=== PATIENT | female | born 1975 | race Caucasian/White ===

== ENCOUNTER 2022-08-26 06:13 | Outpatient (REF) | payer BC, SELFPAY ==
[2022-08-26 11:45] LABS: MANUAL DIFF FLAG NO
[2022-08-26 11:55] LABS: Basophils Absolute Auto 0.1 X10*3/uL (0.0-0.2); Eosinophils Absolute Auto 0.3 X10*3/uL (0.0-0.4); Eosinophils Percent Auto 3.9 % (0-4); Hematocrit 38.2 % (37.0-47.0); Hemoglobin 12.3 g/dl (12.0-16.0); Imm Gran Abs Auto 0.01 X10*3/uL (0.00-0.03); Imm Gran Pct Auto 0.1 % (0.0-0.4); Lymphocytes Absolute Auto 1.8 X10*3/uL (1.2-4.9); Lymphocytes Percent Auto 24.7 % (20-40); Mean Corpuscular HGB Conc 32.2 g/dl (31.0-35.0); Mean Corpuscular Hemoglobin 27.5 pg (27.0-33.0); Mean Corpuscular Volume 85.3 fL (80.0-98.0); Mean Platelet Volume 12.2 fL (9.4-12.3); Monocytes Absolute Auto 0.6 X10*3/uL (0.1-1.2); Monocytes Percent Auto 8.5 % (2-11); Neutrophils Absolute Auto 4.5 x10*3/uL (2.0-8.3); Neutrophils Percent Auto 61.8 % (45-73); Platelet Count 308 X10*3/uL (160-400); Red Blood Count 4.48 X10*6/uL (4.20-5.50); Red Cell Distribution Width 14.4 % (11.0-16.0); White Blood Count 7.3 X10*3/uL (4.8-10.8)
[2022-08-26 12:18] LABS: Alanine Aminotransferase 14 U/L (0-31); Albumin Level 4.2 g/dL (3.5-5.0); Alkaline Phosphatase 54 U/L (39-117); Anion Gap 12 (12-20); Aspartate Amino Transferase 17 U/L (5-31); Bilirubin Total 0.2 mg/dL (0.0-1.0); Blood Urea Nitrogen 11 mg/dL (9-16); Calcium 9.1 mg/dL (8.4-10.2); Carbon Dioxide 27 mmol/L (22-29); Chloride 106 mmol/L (96-108); Estimated Glomerular Filt Rate > 60; Glucose Fasting 93 mg/dL (60-99); Sodium 141 mmol/L (135-145); Total Protein 6.3 g/dL (6.5-8.0)
[2022-08-26 13:01] LABS: HIV AB/AG Nonreactive (Nonreactive); HIV Num 1 0.06 S/CO (0.00-0.99)
[2022-08-27 04:23] LABS: Syphilis Screen Nonreactive (Nonreactive)
== END 2022-08-26 06:14 | disposition home or self-care (01) ==
LOC: HO.HMGCLDS 06:13
PROVIDERS: PCP Family Medicine; Visit Provider Family Medicine
DX: Z11.4 Encounter for screening for human immunodeficiency virus [HIV] (principal); R53.83 Other fatigue; R53.81 Other malaise
CPT/HCPCS: 36415; 80053; 85025; 86780; 87389

== ENCOUNTER 2022-09-13 13:01 | Outpatient (REF) | payer BC, SELFPAY ==
--- NOTE | ~2022-09-13 | XR_ITS ---
EXAMINATION: XR LUMBOSACRAL SPINE CLINICAL INFORMATION: Right-sided sciatica. COMPARISON: 06/19/2016 lumbar spine radiographs. TECHNIQUE: Three views of the lumbosacral spine. FINDINGS: Mild thoracolumbar dextroscoliosis with apex at L1-L2. There is normal lumbar lordosis and spinal alignment. Limbus vertebra at L3 and L4. Mild sclerotic changes in the anterior aspect of the superior endplates at L2 and L3. The vertebral bodies are otherwise intact. The soft tissues are unremarkable. XR/XR lumbar spine 2-3V IMPRESSION: 1. Mild thoracolumbar dextroscoliosis. 2. Mild sclerotic changes in the anterior aspect of the superior endplates at L2 and L3 may be degenerative in nature. No significant change.
[2022-09-14 01:46] LABS: CT PCR NOT DETECTED (Not Detect.); NG PCR NOT DETECTED (Not Detect.)
== END 2022-09-13 13:02 | disposition home or self-care (01) ==
LOC: HO.HMGCX 13:01
PROVIDERS: Nurse Practitioner Family; PCP Family Medicine; Visit Provider Family Medicine
DX: M54.31 Sciatica, right side (principal)
CPT/HCPCS: 72100; 87491; 87591

== ENCOUNTER 2022-09-13 14:50 | Outpatient (REF) | payer BC, SELFPAY | END 2022-09-13 14:51 | disposition home or self-care (01) | LOC: HO.LAB 14:50 | PROVIDERS: Visit Provider Nurse Practitioner Family | DX: R30.0 Dysuria (principal) | CPT/HCPCS: 87086; 87147 ==

== ENCOUNTER 2023-10-16 09:52 | Day surgery (SDC) | payer OTHER, SELFPAY ==
--- NOTE | 2023-10-14 12:01 | HO.ANESPROP2 ---
Documented by User: Heather Dickey NP 10/14/23 12:02 HPI - Anesthesia Eval Consult details Narrative: 48yo F for Colonoscopy PMF Active Problems Active Problems: All Active Problems (Updated 09/13/22 @ 14:49 by Cailin Justin, [facility]) Dysuria (Acute) Past Medical History Medical History Dysuria Surgical History Surgical History Hx of tonsillectomy Hx of section Social History Social History Patient Tobacco Use Status: Never used Tobacco Are you DNR?: No Advance Directives: No Advance Directives Information Provided: Yes Nutrition Risks: No Nutritional Risk Meds Allergies Allergy/AdvReac Type Severity Reaction Status Date / Time No Known Allergies Allergy Unverified 09/13/22 13:57 Home Medications Medication Instructions Recorded Confirmed Last Taken Type No Known Home Meds 09/13/22 09/13/22 Unknown History Assessment and Plan Assessment Anesthesia Assessment: Chart Reviewed Documented by User: Kenia Soler MD 10/16/23 10:24 PMFSH Past Medical History Medical History Dysuria Family History Family history of problems with anesthesia: No Surgical History Surgical History Hx of tonsillectomy Hx of section History of Problems with Anesthesia: No Social History Social History Patient Tobacco Use Status: Never used Tobacco Are you DNR?: No Advance Directives: No Advance Directives Information Provided: Yes Nutrition Risks: No Nutritional Risk Meds Allergies Allergy/AdvReac Type Severity Reaction Status Date / Time No Known Allergies Allergy Unverified 09/13/22 13:57 Home Medications Medication Instructions Recorded Confirmed Last Taken Type No Known Home Meds 09/13/22 09/13/22 Unknown History Exam Airway Mallampati Class: II TM Dist: >3cm Neck ROM: Full Heart: rrr Lungs: cta Assessment and Plan Assessment Anesthesia Assessment: Anesthesia Plan Discussed Final Anesthetic Review Family History of Problems with Anesthesia: No History of Problems with Anesthesia: No NPO: Yes ASA Class: I Final Preanesthetic Review: No Changes in Pt Med Stat, Meds/Allgs Chart Reviewed, Consent Obtained/Reviewed and Anes Risks/Benef Reviewed Patient Risk: Low Procedure Risk: Low Anesthetic Plan Anesthetic Plan: MAC: Disposition: Standard PACU
[2023-10-16 10:02] VITALS: BMI 27.3
[2023-10-16 10:10] VITALS: BP 125/74; PULSE 72; RESP 20; TEMP 36.1; O2SAT 98
[2023-10-16] MEDS: Lactated Ringers 1,000 ML 100 ML IVCONT (10:19)
--- NOTE | 2023-10-16 10:19 | MHC.SHP ---
Pre-Procedural Eval Section A Date of Service: 10/16/23 The patient is an INPATIENT: No Changes since office visit: No Cold of Flu in the past 2 weeks, No New Medical Problems, No Changes in Medication and No Patient answered all questions The History & Physical has been completed within 30 days and I have reviewed it.: Yes Section B Chief Complaint: Encounter for screening for malignant neoplasm of Allergies: Allergies Allergy/AdvReac Type Severity Reaction Status Date / Time No Known Allergies Allergy Unverified 09/13/22 13:57 Plan I have reviewed the history and physical and performed a pertinent physical examination on my patient. No changes have occurred unless specified. Time Spent With Patient Time: Total time managing care of this patient today ____ minutes.
[2023-10-16 10:27] LABS: UPreg QC Valid YES; Urine Pregnancy NEGATIVE (NEGATIVE)
[2023-10-16 11:05] VITALS: BP 94/45; PULSE 61; RESP 16; TEMP 36.1; O2SAT 97
--- NOTE | 2023-10-16 11:19 | OP_ITS ---
DATE OF SERVICE: 10/16/2023 SURGEON: Jason Yates MD INDICATIONS: Colon cancer screening. PREOPERATIVE DIAGNOSIS: POSTOPERATIVE DIAGNOSIS: PROCEDURE PERFORMED: Colonoscopy to the terminal ileum. ESTIMATED BLOOD LOSS: COMPLICATIONS: ANESTHESIA: Monitored anesthesia care. ASSISTANTS: SPECIMENS: DESCRIPTION OF PROCEDURE: A history and physical performed, the risks and benefits of the procedure explained to the patient and informed consent was obtained. The patient was placed in the left lateral decubitus position. A digital rectal exam was performed and was found to be normal. The Olympus pediatric video colonoscope was introduced into the rectum and advanced to the cecum. The cecum was identified by transillumination, palpation, and identification of ileocecal valve. Examination was performed. The scope was removed. She tolerated the procedure well and was taken to recovery in stable condition. FINDINGS: The terminal ileum was examined and appeared normal. The visualized colonic mucosa was within normal limits without evidence of masses, ulcers, or polyps. The quality of the prep was good. Retroflexed examination showed some small internal hemorrhoids. IMPRESSION: Normal colonoscopy. RECOMMENDATIONS: 1. Follow up as needed. 2. Repeat colonoscopy is recommended in 10 years for average risk individuals. MD PAULINO العلي/TAMMIE / [id number]
[2023-10-16 11:20] VITALS: BP 99/53; PULSE 62; RESP 16; O2SAT 97
[2023-10-16 11:35] VITALS: BP 112/63; PULSE 60; RESP 16; TEMP 36.4; O2SAT 97
== END 2023-10-16 12:06 | disposition home or self-care (01) ==
PROVIDERS: Nurse Practitioner; PCP Family Medicine; Visit Provider Internal Medicine Gastroenterology
PROC: 0DJD8ZZ Inspection of Lower Intestinal Tract, Via Natural or Artificial Opening Endoscopic (ICD-10-PCS; CPT 45378; principal; 2023-10-16 12:00)
DX: Z12.11 Encounter for screening for malignant neoplasm of colon (principal); K64.8 Other hemorrhoids; L29.0 Pruritus ani; R30.0 Dysuria
CPT/HCPCS: 45378; 81025; J2250; J2704

== ENCOUNTER 2025-06-20 14:46 | Outpatient (REF) | payer OTHER, SELFPAY ==
--- NOTE | ~2025-06-20 | XR_ITS ---
Exam: X-ray, bilateral knees.XR KNEE 3 VIEWS BILATERAL TECHNIQUE: Three views lower extremity joint, bilateral knees INDICATION: bilateral knee pain COMPARISON: None available. FINDINGS: RIGHT KNEE: Joint spaces are preserved. Intercondylar tubercles are peaked and there is a small marginal osteophyte on the lateral femoral condyle. There is small joint effusion. Minute osteophyte is present along the lateral margin of patella. Patellofemoral joint is aligned. LEFT KNEE: Joint spaces are preserved. Intercondylar tubercles are peaked. There is a minute marginal osteophyte involving lateral femoral condyle. Patellofemoral joint is aligned. There are minute marginal sites along the lateral patellofemoral joint. There is no joint effusion. XR/XR Knee Doug 3V IMPRESSION: Right knee: Subtle changes of osteoarthritis and joint effusion Left knee: Subtle changes of osteoarthritis of questionable significance Electronically signed by: José Miguel Garcia MD 06/20/2025 04:26 PM EDT
[2025-06-20 16:18] LABS: MANUAL DIFF FLAG NO
[2025-06-20 17:10] LABS: Hematocrit 41.3 % (37.0-47.0); Hemoglobin 14.4 g/dl (12.0-16.0); Imm Gran Abs Auto 0.03 X10*3/uL (0.00-0.03); Imm Gran Pct Auto 0.4 % (0.0-0.4); Lymphocytes Absolute Auto 2.0 X10*3/uL (1.2-4.9); Mean Corpuscular HGB Conc 34.9 g/dl (31.0-35.0); Mean Corpuscular Hemoglobin 30.2 pg (27.0-33.0); Mean Corpuscular Volume 86.6 fL (80.0-98.0); NRBC Abs Auto 0.000 X10*3/uL (0.0-0.012); NRBC Pct Auto 0.0 /100WBC (0.0-0.2); Platelet Count 289 X10*3/uL (160-400); Red Blood Count 4.77 X10*6/uL (4.20-5.50); White Blood Count 8.2 X10*3/uL (4.8-10.8)
[2025-06-20 18:03] LABS: Alanine Aminotransferase 15 U/L (0-31); Albumin Level 4.7 g/dL (3.5-5.0); Alkaline Phosphatase 76 U/L (39-117); Anion Gap 13 (12-20); Aspartate Amino Transferase 25 U/L (5-31); Blood Urea Nitrogen 11 mg/dL (9-16); Calcium 9.5 mg/dL (8.4-10.2); Carbon Dioxide 27 mmol/L (22-29); Chloride 106 mmol/L (96-108); Cholesterol 177 mg/dL (<200); Estimated Glomerular Filt Rate > 60; HDL Cholesterol 70 mg/dL (>40); Iron 83 mcg/dL (30-160); Percent Iron Saturation 30 % (15-50); Potassium 4.0 mmol/L (3.3-5.1); Sodium 142 mmol/L (135-145); Total Iron Binding Capacity 281 mcg/dL (228-428); Total Protein 6.9 g/dL (6.5-8.0); Triglycerides 54 mg/dL (<150); Unsaturated Iron Binding 198 ug/dL
[2025-06-20 18:30] LABS: Vitamin B12 784 pg/mL (200-900)
== END 2025-06-20 14:47 | disposition home or self-care (01) ==
LOC: HO.XRAY 14:46
PROVIDERS: PCP Physician Assistant; Visit Provider Physician Assistant
DX: Z00.00 Encounter for general adult medical examination without abnormal findings (principal); M25.561 Pain in right knee; M25.562 Pain in left knee; Z78.9 Other specified health status; Z80.0 Family history of malignant neoplasm of digestive organs
CPT/HCPCS: 36415; 73562; 80048; 80061; 80076; 82306; 82607; 83540; 85025; 96127

== ENCOUNTER 2025-06-20 14:46 | Outpatient (AMB) | payer OTHER, SELFPAY ==
--- NOTE | 2025-06-20 14:53 | MHC.PC.OV ---
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 Required: No Accompanied by: Self / Same As Patient Allergies No Known Allergies Allergy (Unverified 06/20/25 14:56) Medication List - Last Reconciled 06/20/25 by JH Talley No Known Home Meds Tobacco use date assessed: 06/20/25 Dental Screening Dental Screen Date: 06/20/25 Did you have a dental visit in the last 12 months?: Yes Did you have a dental problem in the last 6 months where you did not have access to dental care?: No Was dental information given to patient?: No HPI HPI Comments History of Present Illness Details 50-year-old female with history of scoliosis, hemorrhoids presenting to the office today for annual physical exam and to establish care. Lives with 18 year old son and feels safe there. 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 She does have a remote history of cigarette smoking. Had been smoking 1-2 packs per day, quit 27 years ago. She also has a history of marijuana use, but denies any ongoing use. No illicit drug use. She is very active, goes to [employer] 4-5 times per week. Does follow a healthy diet, she is vegetarian but does supplement with vitamin. She states overall she feels very good. Concerns: Bilateral knee pain- pain progressively getting worse. Goes to [employer] but unable to run without pain. Pain is intermittent. R>L. Prolonged sitting pain anterior knee and behind. Rated 7-10/10. Stiffness and numbness down leg. Once moving, better. Modifies exercises due to pain. No instability. Pain on stairs when she first gets up. Once moving, pain improves. No specified injury. Health maintenance: Last screening mammogram 12/2024 with 1 year follow-up advised, no evidence of malignancy, [facility] Last Pap 02/2021 with 5 year follow-up advised. [facility]. Follows annually for color weigher exams Last colonoscopy 10/2023 with 10 year follow-up advised. Dr. Yates. * has family history of colon cancer in her maternal grand mother but did have genetic testing performed does not carry gene Eye exams- utd, [facility], wears corrective lenses, no other ophthomologic issues Dental exams- twice yearly ([facility]) Skin exams- every few years. Dr Pearson Reviewed past medical, surgical, family, social history. ROS: General: No fevers, malaise, unintentional weight loss HEENT: No blurred vision, diplopia. No sore throat, nasal congestion, rhinorrhea, sinus pain, ear pain. No hearing loss Neck - no adenopathy Cardiovascular: No chest pain, palpitations, or leg edema Respiratory: No shortness of breath, wheezing, cough Breast: No pain, palpable lumps, nipple inversion GI: No dysphagia, odynophagia, globus sensation. No abdominal pain, nausea, vomiting, diarrhea, constipation, melena, hematochezia : No dysuria, hematuria, increased urinary frequency, decreased urinary output. 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 see hpi Neuro: No headaches, weakness, paresthesias Psych: no depression/anxiery. No AH/VH. No SI/HI Skin: No rashes or lesions EXAM: Constitutional - Awake and Alert, No apparent distress Eyes - PERRLA, EOMI. Anicteric Ears - external ears normal, canals clear, TMs intact and pearly shankar with good cone of light Nose- septum midline Mouth/throat- mucosa moist, tongue and uvula midline, no erythema/edema or tonsillar adenopathy. Neck-trachea midline, thyroid symmetric without palpable nodules, no adenopathy Cardiovascular - S1S2, RRR, No edema Respiratory - Normal lung expansion, Normal respiratory effort, No respiratory distress, CTA bilaterally Gastrointestinal - NT / ND; +BS; No rebound or guarding - No CVA tenderness Extremities - no calf tenderness bilaterally, no swelling Musculoskeletal - Normal inspection, normal ROM. Mild thoracic scoliosis noted. Bilateral knees- no swelling, effusion, warmth, erythema. Full extension and flexion. Negative Miguelina test. Nontender to palpation Skin - Warm/Dry, no concerning lesions Neurological - Alert & oriented x3, CN II-XII in tact, 5/5 strength BUE and BLE, 2+ patellar reflexes, sensation intact Psychological - Appropriate affect PFSH Medical History FH: colon cancer Vegetarian diet Surgical History History of colonoscopy (~10/16/23) Hx of tonsillectomy Hx of section Family History (Updated 06/20/25 @ 15:36 by JH Talley) Maternal Grandmother Colon cancer Mother Hypothyroidism Social History Housing: Condominium Patient Tobacco Use Status: Never used Tobacco e-Cigarette/Vaping Use: Never Used service: No Current occupational status: employed 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 1. Little interest or pleasure in doing things: not at all 2. Feeling down, depressed, or hopeless: not at all Depression Screening Interpretation: Negative Depression Screening Done: Yes Source: Developed by Drs. Candelario Yang, Jada Bennett, Jorge Drew and colleagues, with an educational carline from [employer]. Thrive Questionnaire Date Thrive assessed: 06/20/25 I am a: Patient What is your living situation today?: I have a steady place to live Within the past 12 months, did the food you bought not last and you didn't have the money to get more?: Never true Within the past 12 months, did you worry whether your food would run out before you got money to buy more?: Never true Do you have trouble paying for medicines?: No Do you have trouble getting transportation to medical appointments?: No Do you have trouble paying your heating and electricity bill?: No Do you have trouble taking care of your child, family member or friend?: No Do you have trouble with day-to-day activities such as bathing, preparing meals, shopping, managing finances, etc.?: No Are you currently unemployed and looking for a job?: No Are you interested in more education?: No Please select the resources that you would like help with: None THRIVE Score: 0 NIXON-7 AMB Questionnaire NIXON-7 Date NIXON - 7 assessed: 06/20/25 Feeling nervous, anxious, or on edge: 0 = Not at all Not being able to stop or control worryin = Not at all Worrying too much about different things: 0 = Not at all Trouble relaxin = Not at all Being so restless that it is hard to sit still: 0 = Not at all Becoming easily annoyed or irritable: 0 = Not at all Feeling afraid as if something awful might happen: 0 = Not at all Total NIXON-7 score (0-4 normal; 5-9 mild; 10-14 moderate; 15-21 severe): 0 Source: Developed by Drs. Candelario Yang, Jada Bennett, Jorge Drew and colleagues, with an educational carline from [employer]. Physical exam (Primary Care) Vital Signs: Last Vital Signs Temp 97.6 F 06/20/25 14:57 Pulse 68 06/20/25 14:57 Resp 16 06/20/25 14:57 BP 138/90 H 06/20/25 14:57 Pulse Ox 97 06/20/25 14:57 Oxygen Delivery Method Room Air 06/20/25 14:57 BMI result Body Mass Index 28.0 Tobacco/Smoking Status: Tobacco use Status Tobacco use date assessed 06/20/25 06/20/25 14:59 Patient Tobacco Use Status Never used Tobacco 06/20/25 14:55 e-Cigarette/Vaping Use Never Used 06/20/25 14:59 Depression Screening Interpretation: Negative Thrive Assessment: Date of Thrive Assessment Date Thrive assessed 06/20/25 06/20/25 14:59 Coding Level of Care Code New [facility] Care 40-64y(51100) Diagnoses Routine medical exam Z00.00 Bilateral knee pain M25.561; M25.562 FH: colon cancer Z80.0 Assessment & Plan Assessment & Plan (1) Routine medical exam: Code(s): Z00.00 - Encounter for general adult medical examination without abnormal findings Plan: 50-year-old female presenting to [facility] and for annual physical exam. Plan as below (2) Bilateral knee pain: Code(s): M25.561 - Pain in right knee; M25.562 - Pain in left knee Category: Medical Plan: XR of the bilateral knees ordered. Plan to be adjusted pending results of study. Can use ibuprofen as needed as well as ice or topical analgesics. Continue exercise as tolerated (3) FH: colon cancer: Comment: Maternal grandmother. Has genetic testing, does not carry gene Code(s): Z80.0 - Family history of malignant neoplasm of digestive organs Category: Medical Plan: Continue with screening colonoscopies Plan Follow-up in the office in 1 year, labs to be completed following visit today as well as x-ray of the knees bilaterally Continue with screening mammograms, Pap smears, colonoscopies Continue following for annual skin exams and use sun protection Annual eye exams and dental exams twice yearly Wear seat belt in car Recommend regular exercise and healthy diet Orders: Orders Basic Metabolic Panel Today Z00.00 - Encounter for general adult medical examination without abnormal findings, Z78.9 - Other specified health status Complete Blood Count Auto Diff Today Z00.00 - Encounter for general adult medical examination without abnormal findings, Z78.9 - Other specified health status Lipid Panel Today Z00.00 - Encounter for general adult medical examination without abnormal findings, Z78.9 - Other specified health status Vitamin D 25-OH Total Today Z00.00 - Encounter for general adult medical examination without abnormal findings, Z78.9 - Other specified health status Vitamin B12 Today Z00.00 - Encounter for general adult medical examination without abnormal findings, Z78.9 - Other specified health status IRON PROFILE Today Z00.00 - Encounter for general adult medical examination without abnormal findings, Z78.9 - Other specified health status Liver Panel Today Z00.00 - Encounter for general adult medical examination without abnormal findings, Z78.9 - Other specified health status XR Knee Doug 3V Today M25.561 - Pain in right knee, M25.562 - Pain in left knee
[2025-06-20 14:57] VITALS: BP 138/90; PULSE 68; RESP 16; TEMP 36.4; O2SAT 97; BMI 28.0
--- OUTSIDE RECORDS SUMMARY | 2025-06-20 18:26 | XMS_ITS | Patient Health Record ---
Author Organization [facility] Address [address] [place] [address] Care Team Providers Care Java Lead Name Role Phone Noel (RETIRED) , Gilberto Primary Care Provider Unavailable Jason Yates Jr Unavailable Allergies No Known Allergies Reason For Referral No Information Medications Medication SIG (Take, Route, Frequency, Duration) Notes Start Date End Date Status MiraLax (colon prep) 17 GM/SCOOP mixed with Gatorade or Crystal Light Orally begin at 5:00 p.m. the day before the procedure for 1 day 10/08/2023 Active Social History Tobacco Use: Social History Observation Description Date Details (start date - stop date) Never Smoker NA - NA Tobacco Use/Smoking Question Answer Notes Patient is a nonsmoker Alcohol Screen Question Answer Notes Did you have a drink contain ing alcohol in the past year? Yes How often did you have a dri nk containing alcohol in the past year? Never (0 point) How many drinks did you have on a typical day when you were drinking in the past year? 1 or 2 drinks (0 point) How often did you have 6 or more drinks on one occasion in the past year? Never (0 point) Points 0 Interpretation Negative Problems Problem Type SNOMED Code ICD Code Onset Dates Problem Status W/U Status Risk Notes Problem [id number] Colon cancer screening (Z12.11) Active confirmed Problem 07579605 Hemorrhoids, unspecified hemorrhoid type (K64.9) Active confirmed Plan Of Treatment Future Test Test Name Order Date COLONOSCOPY 10/08/2023 Insurance Providers Payer Name Payer Address Payer Phone Subscriber Number Group Number Insured Name Patient Relationship to Insured Coverage Start Date Coverage End Date [employer] [address] [place] [address] [id number] MAUREEN ABRAHAM Self - patient is the insured Medical (General) History Medical History History ICD Code Denies [place],DM,CVA,Lung disease,renal dise ase Surgical History Surgery Date(Month/Year) tonsillectomy 1990 section 2005
--- OUTSIDE RECORDS SUMMARY | 2025-06-20 18:27 | XMS_ITS | Patient Health Record ---
Author Organization [facility] Address [address] [place] [address] Care Team Providers Care Tip Puncher Name Role Phone Gilberto Cohen MD Primary Care Provider UnavailElda Silva Unavailable [phone] Reason For Referral No Information Social History Tobacco Use: Social History Observation Description Date Details (start date - stop date) Former Smoker NA - NA Tobacco Use/Smoking Question Answer Notes Are you a: former smoker Additional Findings: Tobacco Non-User Current no n-smoker Alcohol Screen Question Answer Notes Did you have a drink containing alcohol in the p ast year? No Points 0 Interpretation Negative Tobacco use other than smoking: Question Answer Notes Are you an other tobacco user? No Problems Problem Type SNOMED Code ICD Code Onset Dates Problem Status W/U Status Risk Notes Problem Acquired hammer toe of right foot (2298090749313 105) Other hammer toe(s) (acquired), right foot (M20.41) Active confirmed Problem Acquired hammer toe of left foot (4893049909501 103) Other hammer toe(s) (acquired), left foot (M20.42) Active confirmed Plan Of Treatment No Information Insurance Providers Payer Name Payer Address Payer Phone Subscriber Number Group Number Insured Name Patient Relationship to Insured Coverage Start Date Coverage End Date [employer]in [employer] [address] [place] [address] [id number] Spouse - patient is the spouse of the insured Medical (General) History Medical History History ICD Code Broken bones, 2 ribs Chicken pox Surgical History Surgery Date(Month/Year) tonsillectomy 1989 section 2005
== END 2025-06-20 15:39 | disposition home or self-care (01) ==
LOC: HO.HMCHD 14:47
PROVIDERS: PCP Family Medicine; Visit Provider Physician Assistant
DX: Z00.00 Encounter for general adult medical examination without abnormal findings (principal); M25.561 Pain in right knee; M25.562 Pain in left knee; Z80.0 Family history of malignant neoplasm of digestive organs

== ENCOUNTER → 2025-06-20 15:54 | Outpatient (BNV) | payer OTHER, SELFPAY | PROVIDERS: PCP Physician Assistant; Visit Provider Radiology Diagnostic Radiology | DX: M25.561 Pain in right knee (principal); M25.562 Pain in left knee | CPT/HCPCS: 73562 ==

== ENCOUNTER 2025-09-22 08:28 | Outpatient (AMB) | payer OTHER, SELFPAY ==
--- OUTSIDE RECORDS SUMMARY | 2025-09-22 08:35 | XMS_ITS | Patient Health Record ---
Author Organization [facility] Address [address] [place] [address] Care Team Providers Care Golf Cart Mechanic Name Role Phone Gilberto Cohen MD Primary Care Provider UnavailElda Silva Unavailable [phone] Reason For Referral No Information Social History [...] Problem Acquired hammer toe of right foot ([id number] 105) Other hammer toe(s) (acquired), right foot (M20.41) Active confirmed Problem Acquired hammer toe of left foot ([id number] 103) Other hammer toe(s) (acquired), left foot (M20.42) Active confirmed Plan Of Treatment No Information Insurance Providers Payer Name Payer Address Payer Phone Subscriber Number Group Number Insured Name Patient Relationship to Insured Coverage Start Date Coverage End Date [employer]in [employer] [address] [place] [address] [id number] Spouse - patient is the spouse of the insured Medical (General) History Medical History History ICD Code Broken bones, 2 ribs Chicken pox Surgical History Surgery Date(Month/Year) tonsillectomy 1989 section 2005
--- OUTSIDE RECORDS SUMMARY | 2025-09-22 08:35 | XMS_ITS | Patient Health Record ---
Author Organization [facility] Address [address] [place] [address] Care Team Providers Care Melter Supervisor Oxygen Furnace Name Role Phone Noel (RETIRED) , Gilberto Primary Care Provider Unavailable Jason Yates Jr Unavailable [phone] Allergies No Known Allergies Reason For Referral No Information Medications Medication SIG (Take, Route, Frequency, Duration) Notes Start Date End Date Status MiraLax (colon prep) 17 GM/SCOOP Powder mixed with Gatorade or Crystal Light Orally begin at 5:00 p.m. the day before the procedure; Duration: 1 day 10/08/2023 Active Social History Tobacco Use: Social History Observation Description Date Details (start date - stop date) Never Smoker NA - NA Social History Drugs/Alcohol: Social Info Question Answer Notes Alcohol Screen Did you have a drink containing alcohol in the past year? Yes How often did you have a drink containing alcohol in the past year? Never (0 point) How many drinks did you have on a typical day when you were drinking in the past year? 1 or 2 drinks (0 point) How often did you have 6 or more drinks on one occasion in the past year? 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 Problem Type SNOMED Code ICD Code Onset Dates Problem Status W/U Status Risk Notes Problem Colon cancer screening (302320913) Colon cancer screening (Z12.11) Active confirmed Problem Hemorrhoids without complication (24582029) Hemorrhoids, unspecified hemorrhoid type (K64.9) Active confirmed Plan Of Treatment Future Test Test Name Order Date COLONOSCOPY 10/08/2023 Insurance Providers Payer Name Payer Address Payer Phone Subscriber Number Group Number Insured Name Patient Relationship to Insured Coverage Start Date Coverage End Date [facility] [address] [place] [address] [id number] MAUREEN ABRAHAM Self - patient is the insured Medical (General) History Medical History History ICD Code Denies [place],DM,CVA,Lung disease,renal dise ase Surgical History Surgery Date(Month/Year) tonsillectomy 1991 section 2005
--- NOTE | 2025-09-22 08:36 | MHC.OFFVIS ---
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 Patient reports ongoing pain for about a year. patient notices that the right knee is worse than the left. She notices her pain is worse when she is running. Patient goes to [employer] and she is unable to do certain movement. She states that she takes antiinflammatories when she really needs it. Allergies No Known Allergies Allergy (Verified 09/22/25 08:38) HPI Comments Details: History of Present Illness The patient is a 50 year old female presenting with right knee pain. She reports the pain is primarily in the right knee, while the left knee is asymptomatic at this time but does experience pain occasionally based on activities. The pain has been gradually worsening over the last few months without a specific inciting injury. The patient is a former avid runner who completed marathons and has been doing [employer] for the past three years, which she attends 3-5 days per week. She modifies her workouts if they bother her knees. Pain is exacerbated by activities like running and ascending or descending stairs, but she is able to walk for long durations and wear heels without issue. Separately, the patient describes a recurring sensation behind her right leg, which she speculates may be related to an epidural from her only childbirth. She notes a 2016 back X-ray showed mild scoliosis. Pain Description - Onset: The patient cannot pinpoint a specific injury but notes the pain has been worsening over the last few months. - Location: Pain is located in the front of the right knee. - Quality: The patient does not describe a sharp, shooting pain. - Exacerbating Factors: Pain is triggered by running and going up and down stairs. - Relieving Factors: Pain is absent when sitting and she is able to walk for hours without issue. - Associated Symptoms: The patient also reports a separate, non-painful radiating sensation behind the right leg, sometimes originating from higher up. Results - Imaging: - Knee X-ray: Recent films were reviewed and show no significant abnormalities. - Back X-ray (2016): Showed mild scoliosis. 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 - Neurological: Reports a radiating sensation behind the right leg. Physical Exam Exam Exam: Physical Exam - Musculoskeletal: Examination of the knees was performed. - Right Knee: Normal to inspection. No ecchymosis, erythema, or joint effusion. No tenderness to palpation along the medial or lateral joint lines. Some clunking over the anterior knee with range of motion. Full knee extension and flexion. No excessive laxity with manipulation of the patella. NVI. - LeftKnee: Normal to inspection. No ecchymosis, erythema, or joint effusion. No tenderness to palpation along the medial or lateral joint lines. Some clunking over the anterior knee with range of motion. Full knee extension and flexion. No excessive laxity with manipulation of the patella. NVI. Assessment & Plan Assessment & Plan (1) Lumbar back pain with radiculopathy affecting right lower extremity: Code(s): M54.16 - Radiculopathy, lumbar region Category: Medical Plan 1. Patellofemoral syndrome, Right The patient's symptoms are consistent with anterior knee pain/ patellofemoral syndrome. A cortisone injection was discussed but deferred as her symptoms are not severe enough to warrant it at this time. It was recommended she try physical therapy with a focus on quadriceps strengthening to alleviate pressure on the patella. The patient was provided with handouts for a home exercise program as an alternative to formal therapy. If symptoms do not improve, activity modification, cortisone injection and formal physical therapy will be the next recommended step. 2. Radicular Sensation, Right Lower Extremity The patient describes a radiating sensation in the right leg, which is suspected to originate from the lumbar spine. A referral to a polymerization engineer is recommended for further evaluation. The patient was given the choice between two providers to facilitate a timely appointment. Consent Patient was informed and verbally consented to the use of an ambient scribe for clinic note documentation during this visit. Coding Level of Care Code New Pt Level 4 (15012) Add On Problem Visit Only Diagnoses Lumbar back pain with radiculopathy affecting right lower extremity M54.16
== END 2025-09-22 09:01 | disposition home or self-care (01) ==
LOC: HO.HOS 08:29
PROVIDERS: PCP Physician Assistant; Visit Provider Physician Assistant
DX: M54.16 Radiculopathy, lumbar region (principal)
CPT/HCPCS: 99204